=== PATIENT | female | born 1970 | race Caucasian/White ===

== ENCOUNTER 2016-10-28 21:04 | Emergency (ER) | payer OTHER ==
[~2016-10-28 21:04] MED LIST: ACULAR10 ML OS; BENADRYL PO; BENTYL10 M1 PO; BIRTH CONTROL PILL PO; CILOXAN5 ML OP; CIPRO250 MG PO; COLACE PO; DESYREL50 M1 DOB; DESYREL50 MG; FLEXERIL PO; ILOTYCIN1 G1 OU; MACROBID 100 M100 MG PO; MOTRIN400 MG PO; NAPROXEN PO; PHENERGAN25 MG PO; PRENATAL MULITV1 TAB PO; PRILOSEC20 MG PO; PROZAC PO; PYRIDIUM PO; ROBAXIN500 MG PO; TRAZODONE PO; TYLENOL #3 PO; VICODIN 5/500 T1 TAB PO; ZANAFLEX4 M1 PO; ZOFRANODT PO; [UNRECOGNIZED DRUG - OTHER] PO
[2016-10-28] MEDS ORDERED: RANITIDINE HCL150 M1 (21:17)
[2016-10-28 22:37] LABS: BASOPHIL% 0.3 % (0-2.5); EOSINOPHIL# 0.1 X10e3 (0-0.7); EOSINOPHIL% 1.1 % (0.0-7.0); HEMATOCRIT 38.2 % (35.0-45.0); LYMPHOCYTE# 2.8 X10e3 (1.0-3.5); LYMPHOCYTE% 37.9 % (17.0-45.0); MEAN CELL VOLUME 90.1 FL (83-96); MEAN CORPUSCULAR HEMOGLOBIN 30.7 PG (28-34); MEAN PLATELET VOLUME 6.4 FL (6.5-11.5); MONOCYTE# 0.6 X10e3 (0-1.0); MONOCYTE% 8.1 % (3.0-12.0); NEUTROPHIL# 3.9 X10e3 (1.5-7.1); NEUTROPHIL% 52.6 % (40-75); PLATELET COUNT 235 X10e3 (140-420); RED BLOOD COUNT 4.24 X10e (3.90-5.30); RED CELL DISTRIBUTION WIDTH 12.3 % (11.0-15.5); WHITE BLOOD COUNT 7.5 X10e3 (4.0-10.5)
[2016-10-28 22:38] LABS: DIFF IND NO
[2016-10-28 22:54] LABS: ALBUMIN SERUM 4.5 g/dL (3.5-5.0); BILIRUBIN,TOTAL 0.1 mg/dL (0.2-2.0); BUN/CREATININE RATIO 14.28; CALCIUM SERUM 8.9 mg/dL (8.4-10.2); CREATININE SERUM 0.7 mg/dL (0.6-1.4); GLOM FILT RATE Estimated 104.6 mL/min (>60); POTASSIUM 3.1 mmol/L (3.5-5.1); PROTEIN TOTAL SERUM 7.1 g/dL (6.0-8.3)
[2016-10-31 08:00] LABS: CHLAMYDIA TRACH Not Detected (Not Detected); N GONOR Not Detected (Not Detected)
== END 2016-10-28 23:54 | disposition home or self-care (01) ==
LOC: SED 21:04
PROVIDERS: Nurse Practitioner
DX: R10.2 Pelvic and perineal pain (principal); E87.6 Hypokalemia; Z88.2 Allergy status to sulfonamides; Z79.899 Other long term (current) drug therapy
CPT/HCPCS: 36415; 80053; 84703; 85025; 87210; 87491; 87591; 87808; 87905; 99284